=== PATIENT | male | born 1935 ===

== ENCOUNTER 2018-06-14 10:36 | Emergency (ER) | payer OTHER ==
[~2018-06-14] VITALS: Ht 177.8 cm; Wt 81.6 kg
[~2018-06-14 10:36] MED LIST: AMOX1TAB12 PO; ATENOLOL25 MG; ATENOLOL50 MG; CATAFLAM50 MG; CEFADROXIL500 MG PO; COZAAR100 MG; DICLOFENAC POTA50 MG; DOLOGESIC CAPSU1 CAP PO; GLIPIZIDE10 MG; GLUCOPHAGE XR500 MG; GLUCOTROL10 MG; HYDROCHLOROTH12.5 M1; HYDROCHLOROTHIA25 MG; INTEGRA PLUS C1 EACH PO; LAXATIVE5 M1 PO; METFORMIN HCL500 MG; ORPH100T PO; OXYC1TAB9 PO; PROTONIX40 M1; PROTONIX40 MG; SILVADENE20 GM TD; SIMVASTATIN20 MG; VOLTAREN100 GM; XARELTO10 MG PO; ZETIA10 MG
== END 2018-06-14 12:25 | disposition home or self-care (01) ==
LOC: ER 10:36
DX: M79.662 Pain in left lower leg (principal); S80.812S Abrasion, left lower leg, sequela; W22.8XXS Striking against or struck by other objects, sequela

== ENCOUNTER 2018-07-31 11:18 | Emergency (ER) | payer OTHER ==
[~2018-07-31] VITALS: Ht 177.8 cm; Wt 81.6 kg
== END 2018-07-31 14:18 | disposition home or self-care (01) ==
LOC: ER 11:18
DX: S90.111A Contusion of right great toe without damage to nail, initial encounter (principal); W22.8XXA Striking against or struck by other objects, initial encounter; Y93.89 Activity, other specified; Y92.098 Other place in other non-institutional residence as the place of occurrence of the external cause; Y99.8 Other external cause status

== ENCOUNTER 2018-08-04 06:55 | Emergency (ER) | payer OTHER ==
[~2018-08-04] VITALS: Ht 177.8 cm; Wt 81.6 kg
[2018-08-04] MEDS ORDERED: DOXYCYCLINE HY100 MG PO (10:55)
[2018-08-04] MEDS ORDERED: INTESTINEX680 M1 PO (10:55)
== END 2018-08-04 11:43 | disposition home or self-care (01) ==
LOC: ER 06:55
DX: S90.111A Contusion of right great toe without damage to nail, initial encounter (principal); L08.89 Other specified local infections of the skin and subcutaneous tissue; W22.8XXA Striking against or struck by other objects, initial encounter; Y93.89 Activity, other specified; Y92.89 Other specified places as the place of occurrence of the external cause; Y99.8 Other external cause status; E11.9 Type 2 diabetes mellitus without complications